=== PATIENT | male | born 1960 | race Caucasian/White ===

== ENCOUNTER 2022-11-22 08:52 | Day surgery (SDC) | payer OTHER ==
[~2022-11-22] VITALS: Ht 172.7 cm; Wt 72.6 kg
[2022-11-22] MEDS ORDERED: LIDOCAINE 2% 100 MG/5 ML UJET TP ONE (13:10)
[2022-11-22] MEDS ORDERED: fentaNYL citrate 0.05 MG/ML VIAL ONE (13:10)
[2022-11-22] MEDS ORDERED: fentaNYL citrate 0.05 MG/ML VIAL IVP ONE (13:35)
== END 2022-11-22 14:40 | disposition home or self-care (01) ==
LOC: MDS 08:52 → MMU 08:59 → MDS 14:40
PROVIDERS: ATTEND Internal Medicine Gastroenterology
DX: Z12.11 Encounter for screening for malignant neoplasm of colon (principal); K63.5 Polyp of colon; Z80.0 Family history of malignant neoplasm of digestive organs; E11.9 Type 2 diabetes mellitus without complications; F32.A Depression, unspecified; I10 Essential (primary) hypertension; Z79.01 Long term (current) use of anticoagulants; Z79.84 Long term (current) use of oral hypoglycemic drugs; Z79.899 Other long term (current) drug therapy; Z90.49 Acquired absence of other specified parts of digestive tract; Z98.890 Other specified postprocedural states
CPT/HCPCS: 45385; 82948; J3010